=== PATIENT | female | born 1985 | race Caucasian/White ===

== ENCOUNTER 2018-11-09 08:36 | Outpatient (CLI) | payer BC, OTHER ==
--- NOTE | 2018-11-09 11:19 | CT ---
CT ABDOMEN AND PELVIS PERFORMED WITHOUT CONTRAST ENHANCEMENT: Date: 11/09/18 HISTORY: Right flank pain, history of lithotripsy. History of renal calculi. FINDINGS: The lung bases are clear of any infiltrative process. The liver, spleen, pancreas, and gallbladder regions appear unremarkable given the limitations of a n oncontrast study. The right and left adrenal glands are normal in appearance. Right and left kidneys are normal in size . There are two lower pole right renal calculi. One is a punctate calculus, the other measures in the 2-3 mm range. There is some mild right-sided hydronephrosis, mainly related to dilatation of the low er pole collecting system. Upper pole collecting system appears less dilated, but I do not see a defi nite duplicated ureter. The proximal right ureter is also slightly dilated to the point that it cross es beneath the vessel at approximately the L3 level. I do not see any obstructing calculus along the course of the ureter. The distal ureter is more difficult to follow, but it does not appear dilated. I do not see a bladder calculus. Etiology of the dilatation is unclear. Some of it could be related t o the vein at this level, but the dilatation is more prominent than typically seen for this, and may indicate that a stone has passed. There is no significant periaortic or mesenteric adenopathy. No sig nificant pelvic lymphadenopathy. The cecum is low lying. Appendix is normal in appearance. IMPRESSION: 1. Two punctate nonobstructing lower pole right renal calculi. 2. Some mild right-sided hydronephrosis and dilatation to the proximal right ureter to the level of a crossing vein. There is no calculus seen, although the dilatation would suggest the possibility mazin t maybe a stone has passed or changes could be possibly related to a small clot or papilla, or possib ly that one of the lower pole calculi transiently passed into the right ureter, then went retrograde back into the right kidney. POS: [facility]
== END 2018-11-09 08:37 | disposition home or self-care (01) ==
LOC: CT 08:36
PROVIDERS: ATTEND Urology
DX: N20.0 Calculus of kidney (principal); N13.30 Unspecified hydronephrosis
CPT/HCPCS: 74176